=== PATIENT | female | born 1935 | race African-American/Black ===

== ENCOUNTER 2020-07-09 20:44 | Inpatient (IN) | payer OTHER ==
[2020-07-09 22:40] LABS: Urine Blood 2+ (Negative); Urine Glucose Negative (Negative); Urine Protein Trace (Negative)
[2020-07-09] MEDS ORDERED: NA CHLORIDE 0.9% 1,000 ML ONE (23:33)
[2020-07-09] MEDS ORDERED: FAMOTIDINE 20 MG/2 ML VIAL IV ONE (23:34)
[2020-07-09 23:36] LABS: Absolute Lymphocytes (CBC) 1.2 K/uL (0.7-4.9); Basophils % 0.9 % (0-1.3); Hematocrit 37.4 % (36.0-45.0); Lymphocytes % 15.1 % (15.3-44.8); MPV 7.6 fL (7.6-11.3); RBC Red Blood Cell Count 4.56 M/uL (3.86-4.86)
[2020-07-09 23:46] LABS: Protime INR 1.3
--- NOTE | 2020-07-10 00:16 | EDPHYS ---
Physician Documentation [facility] Name: Anurag Marinelli Age: 84 yrs Sex: Female : 1935 Arrival Date: 07/09/2020 Time: 20:53 Bed 27 Private MD: TYRA Physician Jose Rafael Peterson HPI: 07/10 00:00 This 84 yrs old Black Female presents to ER via Ambulatory with complaints of Slurred juanpablo Speech, General Weakness. 00:01 Onset: The symptoms/episode began/occurred 3 day(s) ago. Modifying factors: The juanpablo symptoms are alleviated by nothing, the symptoms are aggravated by movement. Associated signs and symptoms: Pertinent positives: constipation, cramping. Severity of symptoms: At their worst the symptoms were mild, in the emergency department the symptoms are unchanged. The patient's problem is reported as dysphasia, weakness, that is generalized. Onset: The symptoms/episode began/occurred 3 day(s) ago. Duration: The episodes are intermittent. Context: the episode(s) was witnessed, by family, son. The symptoms are alleviated by nothing. The symptoms are aggravated by nothing. The patient presents with pain that is acute, and decreased range of motion. The symptoms are located in the lumbar area, left low back and right low back. Onset: The symptoms/episode began/occurred 3 day(s) ago. The pain does not radiate. Associated signs and symptoms: Pertinent positives: none. Modifying factors: The patient symptoms are alleviated by nothing, the patient symptoms are aggravated by lifting, movement, supine position, walking. weak, pain all over , low back and legs hurt, weight loss, no doctor. Historical: - Allergies: 07/09 21:09 No Known Allergies; ca1 - PMHx: 21:09 High Cholesterol; ca1 - PSHx: 21:09 Tubal ligation; ca1 - Immunization history:: Client reports receiving the 2nd dose of the Covid vaccine, Client reports receiving the 1st dose of the Covid vaccine, Pneumococcal vaccine is up to date, Flu vaccine is up to date. - Social history:: Smoking status: Patient denies any tobacco usage or history of. ROS: 07/10 00:01 Constitutional: Negative for fever, chills, and weight loss, Eyes: Negative for injury, juanpablo pain, redness, and discharge, ENT: Negative for injury, pain, and discharge, Neck: Negative for injury, pain, and swelling, Cardiovascular: Negative for chest pain, palpitations, and edema, Respiratory: Negative for shortness of breath, cough, wheezing, and pleuritic chest pain, Abdomen/GI: Negative for abdominal pain, nausea, vomiting, diarrhea, and constipation, : Negative for injury, bleeding, discharge, and swelling, Skin: Negative for injury, rash, and discoloration, Psych: Negative for depression, anxiety, suicide ideation, homicidal ideation, and hallucinations, Allergy/Immunology: Negative for hives, rash, and allergies, Endocrine: Negative for neck swelling, polydipsia, polyuria, polyphagia, and marked weight changes, Hematologic/Lymphatic: Negative for swollen nodes, abnormal bleeding, and unusual bruising. Back: Positive for decreased range of motion, pain at rest, pain with movement. MS/extremity: Positive for decreased range of motion, pain, tenderness, of the back, buttocks and pelvis. Exam: 00:01 Constitutional: This is a well developed, well nourished patient who is awake, alert, juanpablo and in no acute distress. Head/Face: Normocephalic, atraumatic. Eyes: Pupils equal round and reactive to light, extra-ocular motions intact. Lids and lashes normal. Conjunctiva and sclera are non-icteric and not injected. Cornea within normal limits. Periorbital areas with no swelling, redness, or edema. ENT: Nares patent. No nasal discharge, no septal abnormalities noted. Tympanic membranes are normal and external auditory canals are clear. Oropharynx with no redness, swelling, or masses, exudates, or evidence of obstruction, uvula midline. Mucous membranes moist. Neck: Trachea midline, no thyromegaly or masses palpated, and no cervical lymphadenopathy. Supple, full range of motion without nuchal rigidity, or vertebral point tenderness. No Meningismus. Chest/axilla: Normal chest wall appearance and motion. Nontender with no deformity. No lesions are appreciated. Cardiovascular: Regular rate and rhythm with a normal S1 and S2. No gallops, murmurs, or rubs. Normal PMI, no JVD. No pulse deficits. Respiratory: Lungs have equal breath sounds bilaterally, clear to auscultation and percussion. No rales, rhonchi or wheezes noted. No increased work of breathing, no retractions or nasal flaring. Abdomen/GI: Soft, non-tender, with normal bowel sounds. No distension or tympany. No guarding or rebound. No evidence of tenderness throughout. Female : Normal external genitalia. Skin: Warm, dry with normal turgor. Normal color with no rashes, no lesions, and no evidence of cellulitis. MS/ Extremity: Pulses equal, no cyanosis. Neurovascular intact. Full, normal range of motion. Neuro: Awake and alert, GCS 15, oriented to person, place, time, and situation. Cranial nerves II-XII grossly intact. Motor strength 5/5 in all extremities. Sensory grossly intact. Cerebellar exam normal. Normal gait. Psych: Awake, alert, with orientation to person, place and time. Behavior, mood, and affect are within normal limits. 00:01 Back: pain, that is mild, that is moderate, ROM is painful, normal spinal alignment noted, CVA tenderness, is absent, vertebral tenderness, is not appreciated, muscle spasm, is not present. 00:01 Neuro: Orientation: is normal, appropriate for stated age, no acute changes, Mentation: is normal, appropriate for stated age, no acute changes, Memory: is normal, appropriate for stated age, no acute changes, Cranial nerves: grossly normal, is grossly normal based on the patient's age, no acute changes, Cerebellar function: is grossly normal, is grossly normal based on the patient's age, no acute changes, Motor: moves all fours, Sensation: no acute changes, Gait: is steady, appropriate for age, Babinski testing is normal, seizure activity, is not displayed by the patient. 00:06 Radiologist reports: negative head, old changes [facility] 00:11 ECG was reviewed by the Attending Physician. [facility] Vital Signs: 07/09 21:01 BP 136 / 80; Pulse 80; Resp 16 S; Temp 99.3(O); Pulse Ox 100% on R/A; Weight 47.63 kg ca1 (R); Height 5 ft. 4 in. (162.56 cm) (R); Pain 0/10; 22:56 BP 106 / 81; Pulse 72; Resp 18; Pulse Ox 99% on R/A; ad5 07/10 00:56 BP 150 / 62; Pulse 65; Resp 16 S; Pulse Ox 95% on R/A; ad5 01:30 BP 142 / 72; Pulse 70; Resp 17 S; Pulse Ox 96% on R/A; ad5 07/09 21:01 Body Mass Index 18.02 (47.63 kg, 162.56 cm) ca1 MDM: 07/09 22:32 Patient medically screened. [facility] 07/10 00:07 Differential diagnosis: kidney stone, malignancy, nonspecific abdominal pain, chronic juanpablo back pain, Epidural or Perispinal Abcess Epidural or Perispinal Bleed Fracture Hydronephrosis Neoplasm Osteoarthritis Osteomalacia Osteoporosis ruptured disc, sprain, Ureterolithiasis. Data reviewed: vital signs, nurses notes, lab test result(s), EKG, radiologic studies, CT scan, plain films. Data interpreted: associate engineer: rate is 72 beats/min, rhythm is regular, Pulse oximetry: on room air is 99 %. Test interpretation: by ED physician or midlevel provider: ECG, plain radiologic studies. Counseling: I had a detailed discussion with the patient and/or guardian regarding: the historical points, exam findings, and any diagnostic results supporting the discharge/admit diagnosis, lab results, radiology results, the need for further work-up and treatment in the hospital. 07/09 22:40 Order name: Urine Dipstick-Ancillary; Complete Time: 23:57 EDPA 07/09 23:06 Order name: Basic Metabolic Panel [facility] 07/09 23:06 Order name: CBC with Diff [facility] 07/09 23:06 Order name: LFT's [facility] 07/09 23:06 Order name: Magnesium [facility] 07/09 23:06 Order name: NT PRO-BNP [facility] 07/09 23:06 Order name: PT-INR [facility] 07/09 23:06 Order name: Troponin (emerg Dept Use Only); Complete Time: 00:36 [facility] 07/09 23:06 Order name: Lipase; Complete Time: 00:36 [facility] 07/09 23:06 Order name: Urine Culture [facility] 07/09 23:06 Order name: Basic Metabolic Panel; Complete Time: 00:36 EDPA 07/09 23:06 Order name: CBC with Automated Diff; Complete Time: 23:57 EDMS 07/09 23:06 Order name: Liver (Hepatic) Function; Complete Time: 00:36 EDPA 07/09 23:06 Order name: Magnesium; Complete Time: 00:36 EDPA 07/09 21:20 Order name: CT Head Brain wo Cont [facility] 07/09 21:40 Order name: Stone Protocol EDPA 07/09 23:06 Order name: XRAY Chest (1 view) [facility] 07/09 23:06 Order name: CT Chest, Abdomen, Pelvis - W/Contrast: oral and iv [facility] 07/09 23:06 Order name: NT PRO-BNP; Complete Time: 00:36 EDMS 07/09 23:06 Order name: Protime (+INR); Complete Time: 23:57 EDPA 07/10 00:00 Order name: CT Head Brain w Cont [facility] 07/10 00:16 Order name: SARS-COV-2 RT PCR; Complete Time: 00:36 EDMS 07/09 23:06 Order name: EKG; Complete Time: 23:06 [facility] 07/09 23:06 Order name: Cardiac monitoring; Complete Time: 23:46 [facility] 07/09 23:06 Order name: EKG - Nurse/Tech; Complete Time: 23:46 [facility] 07/09 23:06 Order name: IV Saline Lock; Complete Time: 23:46 [facility] 07/09 23:06 Order name: Labs collected and sent; Complete Time: 23:46 [facility] 07/09 23:06 Order name: O2 Sat Monitoring; Complete Time: 00:27 [facility] 07/10 02:05 Order name: CONS Physician Consult EDPA EC:11 Rate is 71 beats/min. Rhythm is regular. QRS [place] is Normal. [place] interval is normal. QRS juanpablo interval is normal. QT interval is normal. No Q waves. T waves are Normal. No ST changes noted. Clinical impression: NSR w/ Non-specific ST/T Changes and No evidence of ischemia. Interpreted by me. Reviewed by me. Administered Medications: 07/09 23:35 Drug: NS 0.9% 500 ml Route: IV; Rate: bolus; Site: right forearm; ad5 07/10 00:26 Follow up: IV Status: Completed infusion; IV Intake: 500ml ad5 07/09 23:35 Drug: NS 0.9% 1000 ml Route: IV; Rate: 125 ml/hr; Site: right forearm; ad5 07/10 02:42 Follow up: IV Status: Completed infusion; IV Intake: 1000ml ad5 07/09 23:36 Drug: Pepcid (famotidine) 20 mg Route: IVP; Site: right forearm; ad5 07/10 00:25 Follow up: Response: No adverse reaction ad5 00:55 Drug: Rocephin (cefTRIAXone) 1 grams Route: IV; Rate: per protocol; Site: right forearm;ad5 01:43 Follow up: IV Status: Completed infusion ad5 01:04 Drug: Aspirin 162 mg Route: PO; ad5 01:44 Follow up: Response: No adverse reaction ad5 01:04 Drug: Lopressor (metoprolol TARTRATE)) 25 mg Route: PO; ad5 01:43 Follow up: Response: No adverse reaction ad5 01:04 Drug: PlaVIX (clopidogrel) 75 mg Route: PO; ad5 01:43 Follow up: Response: No adverse reaction ad5 Disposition: 07/10/20 00:15 Hospitalization ordered by Mary Fall for Inpatient Admission. 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 - Bed requested for Telemetry/MedSurg (Inpatient). - Status is Inpatient Admission. ad5 - Condition is Stable. - Problem is new. - Symptoms have improved. Signatures: Dispatcher [employer] EDPA Jose Rafael Peterson MD MD cha Lasagna, Tonya RN RN tl1 Sapphire Umaña RN RN ca1 Homero Hogan ad5 Corrections: (The following items were deleted from the chart) 07/09 21:46 21:41 Stone Protocol+CT.RAD.BRZ ordered. EDPA EDPA 23:35 23:13 CORONAVIRUS+MR.LAB.BRZ ordered. [facility] EDPA 07/10 00:38 00:15 Hospitalization Ordered by Mary Fall MD for Observation. Preliminary juanpablo diagnosis is Weakness; Neoplasm related pain (acute) (chronic) - spine; Urinary tract infection, site not specified. Bed requested for Telemetry/MedSurg (observation). Status is Observation. Condition is Stable. Problem is new. Symptoms have improved. juanpablo 00:39 00:38 07/10/2020 00:15 Hospitalization Ordered by Mary Fall MD for Inpatient juanpablo Admission. Preliminary diagnosis is Weakness; Neoplasm related pain (acute) (chronic) - spine; Urinary tract infection, site not specified; Non-ST elevation (NSTEMI) myocardial infarction. Bed requested for Telemetry/MedSurg (Inpatient). Status is Inpatient Admission. Condition is Stable. Problem is new. Symptoms have improved. juanpablo 02:21 00:39 07/10/2020 00:15 Hospitalization Ordered by Mary Fall MD for Inpatient tl1 Admission. 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 Bed requested for Telemetry/MedSurg (Inpatient). Status is Inpatient Admission. Condition is Stable. Problem is new. Symptoms have improved. juanpablo 03:33 02:21 07/10/2020 00:15 Hospitalization Ordered by Mary Fall MD for Inpatient ad5 Admission. 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 Bed requested for Telemetry/MedSurg (Inpatient). Status is Inpatient Admission. Condition is Stable. Problem is new. Symptoms have improved. tl1
--- NOTE | 2020-07-10 00:16 | ER ---
Nurse's Notes [facility] Name: Anurag Marinelli Age: 84 yrs Sex: Female : 1935 Arrival Date: 07/09/2020 Time: 20:53 Bed 27 Private MD: Diagnosis: Weakness;Neoplasm related pain (acute) (chronic)-spine, liver and lung;Urinary tract infection, site not specified;Non-ST elevation (NSTEMI) myocardial infarction Presentation: 07/09 21:01 Chief complaint: Patient states: I just been been feeling weak on my both legs, also ca1 been having low back pain, across. Patient's son or daughter states: SON: I feel like her speech has slowed down, he is forgetful and confused. Noticed this a week and half ago and has progressed. Took her to [place], did a Covid swab test and it was negative. She was also diagnosed with UTI at [facility] and has completed ABX. A\T\Ox2, VAN negative. No slurring noted. NO facial droop. Denies HX of stroke. Coronavirus screen: Client denies travel out of the [place] in the last 14 days. The client reports previous COVID testing was negative. Date of collection: June 2020. Ebola Screen: Patient negative for fever greater than or equal to 101.5 degrees Fahrenheit, and additional compatible Ebola Virus Disease symptoms Patient denies exposure to infectious person. Patient denies travel to an Ebola-affected area in the 21 days before illness onset. No symptoms or risks identified at this time. Initial Sepsis Screen: Does the patient meet any 2 criteria? No. Patient's initial sepsis screen is negative. Does the patient have a suspected source of infection? No. Patient's initial sepsis screen is negative. Risk Assessment: Do you want to hurt yourself or someone else? Patient reports no desire to harm self or others. Onset of symptoms was July 09, 2020. 21:01 Method Of Arrival: Ambulatory ca1 21:01 Acuity: BRIANA 3 ca1 Historical: - Allergies: 21:09 No Known Allergies; ca1 - PMHx: 21:09 High Cholesterol; ca1 - PSHx: 21:09 Tubal ligation; ca1 - Immunization history:: Client reports receiving the 2nd dose of the Covid vaccine, Client reports receiving the 1st dose of the Covid vaccine, Pneumococcal vaccine is up to date, Flu vaccine is up to date. - Social history:: Smoking status: Patient denies any tobacco usage or history of. Screenin:56 Abuse screen: Denies threats or abuse. Denies injuries from another. Nutritional ad5 screening: pt reports decreased appetite and poor po intake at home. Tuberculosis screening: No symptoms or risk factors identified. Fall Risk No fall in past 12 months (0 pts). Secondary diagnosis (15 points) IV access (20 points). Ambulatory Aid- None/Bed Rest/Nurse Assist (0 pts). Gait- Weak (10 pts.). Mental Status- Oriented to own ability (0 pts). Total Donaldson Fall Scale indicates High Risk Score (45 or more points). Fall prevention measures have been instituted. Side Rails Up X 2 Frequent Obs/Assessments Occuring Family Present and informed to notify staff if the need to leave the bedside. Assessment: 22:53 General: Appears in no apparent distress. malnourished, Behavior is calm, cooperative, ad5 appropriate for age. Pain: Complains of pain in lumbar area. Neuro: Level of Consciousness is awake, alert, obeys commands, Oriented to person, place, situation, Painter Mirror are weak bilaterally Moves all extremities. Weakness Gait is steady, Speech is normal, Facial symmetry appears normal, Pupils are PERRLA, Intact. Cardiovascular: Reports chest pain, fatigue, Pt reports lower chest wall pain with deep inspiration over past week, denies CP at this time. Respiratory: No deficits noted. Airway is patent Trachea midline Respiratory effort is even, unlabored, Respiratory pattern is regular, symmetrical. GI: No deficits noted. Abdomen is flat, Bowel sounds present X 4 quads. Abd is soft and non tender Reports decreased appetite. : No deficits noted. Reports recently finished po abx for dx UTI this past week. EENT: No deficits noted. Derm: No deficits noted. Skin is intact, Skin is dry, Skin is normal, Skin temperature is warm. Musculoskeletal: No deficits noted. 07/10 00:24 Reassessment: Patient appears in no apparent distress at this time. No changes from ad5 previously documented assessment. Patient and/or family updated on plan of care and expected duration. Pain level reassessed. Patient is alert, oriented x 3, equal unlabored respirations, skin warm/dry/pink. 01:41 Reassessment: No changes from previously documented assessment. Patient and/or family ad5 updated on plan of care and expected duration. Pain level reassessed. Patient is alert, oriented x 3, equal unlabored respirations, skin warm/dry/pink. Pt up to restroom, ambulates independently with steady gait. Repositioned back into stretcher for comfort. Family remains at bedside. Pt reattached to CM with BP/pulse ox. Denies new or worsening c/o. Resp even/unlabored. VS remain stable. NAD noted, will continue to monitor. Vital Signs: 07/09 21:01 BP 136 / 80; Pulse 80; Resp 16 S; Temp 99.3(O); Pulse Ox 100% on R/A; Weight 47.63 kg ca1 (R); Height 5 ft. 4 in. (162.56 cm) (R); Pain 0/10; 22:56 BP 106 / 81; Pulse 72; Resp 18; Pulse Ox 99% on R/A; ad5 07/10 00:56 BP 150 / 62; Pulse 65; Resp 16 S; Pulse Ox 95% on R/A; ad5 01:30 BP 142 / 72; Pulse 70; Resp 17 S; Pulse Ox 96% on R/A; ad5 07/09 21:01 Body Mass Index 18.02 (47.63 kg, 162.56 cm) ca1 ED Course: 07/09 20:53 Patient arrived in ED. am4 21:08 Triage completed. ca1 21:09 Arm band placed on right wrist. ca1 21:40 Jose Rafael Peterson MD is Attending Physician. juanpablo 21:43 CT Head Brain wo Cont In Process Unspecified. EDMS 21:48 Stone Protocol In Process Unspecified. EDMS 22:23 Homero Hogan is Primary Nurse. ad5 22:57 Patient has correct armband on for positive identification. Placed in gown. Bed in low ad5 position. Call light in reach. Side rails up X2. state patrol officer on. Pulse ox on. NIBP on. Door closed. Noise minimized. Warm blanket given. 23:41 XRAY Chest (1 view) In Process Unspecified. EDMS 23:46 No provider procedures requiring assistance completed. Inserted saline lock: 22 gauge ad5 in right forearm, using aseptic technique. 23:47 Initial lab(s) drawn, by me, sent to lab. ad5 05/21 00:12 Mary Fall MD is Hospitalizing Provider. juanpablo 00:27 Basic Metabolic Panel Sent. ad5 00:27 CBC with Diff Sent. ad5 00:27 LFT's Sent. ad5 00:27 Magnesium Sent. ad5 01:32 CT Head Brain w Cont Sent. ad5 01:32 CT Chest, Abdomen, Pelvis - W/Contrast: oral and iv Sent. ad5 01:38 CT Chest, Abdomen, Pelvis - W/Contrast: oral and iv In Process Unspecified. EDMS 01:38 CT Head Brain w Cont In Process Unspecified. EDMS 03:33 Patient admitted, IV remains in place. ad5 Administered Medications: 07/09 23:35 Drug: NS 0.9% 500 ml Route: IV; Rate: bolus; Site: right forearm; ad5 07/10 00:26 Follow up: IV Status: Completed infusion; IV Intake: 500ml ad5 07/09 23:35 Drug: NS 0.9% 1000 ml Route: IV; Rate: 125 ml/hr; Site: right forearm; ad5 07/10 02:42 Follow up: IV Status: Completed infusion; IV Intake: 1000ml ad5 07/09 23:36 Drug: Pepcid (famotidine) 20 mg Route: IVP; Site: right forearm; ad5 07/10 00:25 Follow up: Response: No adverse reaction ad5 00:55 Drug: Rocephin (cefTRIAXone) 1 grams Route: IV; Rate: per protocol; Site: right forearm;ad5 01:43 Follow up: IV Status: Completed infusion ad5 01:04 Drug: Aspirin 162 mg Route: PO; ad5 01:44 Follow up: Response: No adverse reaction ad5 01:04 Drug: Lopressor (metoprolol TARTRATE)) 25 mg Route: PO; ad5 01:43 Follow up: Response: No adverse reaction ad5 01:04 Drug: PlaVIX (clopidogrel) 75 mg Route: PO; ad5 01:43 Follow up: Response: No adverse reaction ad5 Intake: 00:26 IV: 500ml; Total: 500ml. ad5 02:42 IV: 1000ml; Total: 1500ml. ad5 Outcome: 00:15 Decision to Hospitalize by Provider. juanpablo 03:32 Admitted to Med/surg accompanied by nurse, via stretcher. ad5 03:32 Condition: stable 03:32 Instructed on the need for admit, Demonstrated understanding of instructions. 03:33 Patient left the ED. ad5 Signatures: Dispatcher [employer] EDMS Nicholas, Jose Rafael, MD MD juanpablo Acob, Sapphire, CEE RN ca1 Andie Butts Andrea ad5
[2020-07-10 00:24] LABS: Albumin 3.4 g/dL (3.4-5.0); Bilirubin Direct 0.2 mg/dL (0-0.2); Bilirubin Total 0.5 mg/dL (0.2-1.0); Magnesium 2.6 mg/dL (1.8-2.4); Potassium 4.2 mmol/L (3.5-5.1); Protein, Total 7.9 g/dL (6.4-8.2)
[2020-07-10 00:28] LABS: Troponin (Emerg Dept Use Only) 0.81 ng/mL (0.0-0.045)
[2020-07-10] MEDS ORDERED: CEFTRIAXONE 1000 MG/VIAL ONE (00:56)
[2020-07-10] MEDS ORDERED: NA CHLORIDE 0.9% 50 ML ONE (00:56)
[2020-07-10] MEDS ORDERED: METOPROLOL TAR 25 MG TAB ONE (01:17)
[2020-07-10] MEDS ORDERED: ASPIRIN 81 MG CHEWABLE TABLET ONE (01:17)
[2020-07-10] MEDS ORDERED: CLOPIDOGREL 75 MG TABLET ONE ×2 (01:18→01:22)
[2020-07-10] MEDS ORDERED: ONDANSETRON 4 MG/2 ML VIAL IV PRN (03:04)
[2020-07-10] MEDS ORDERED: MORPHINE 2 MG/ML SYR IV PRN (03:04)
[2020-07-10] MEDS ORDERED: ACETAMINOPHEN 500 MG TAB PO PRN (03:04)
[2020-07-10 04:00] VITALS: BMI 24.0
--- NOTE | 2020-07-10 04:28 | P.HP ---
Certification for Inpatient Patient admitted to: Inpatient With expected LOS: >2 Midnights Patient will require the following post-hospital care: None Practitioner: I am a practitioner with admitting privileges, knowledge of patient current condition, hospital course, and medical plan of care. Services: Services provided to patient in accordance with Admission requirements found in Title 42 Section 412.3 of the Code of Federal Regulations Patient History Date of Service: 07/10/20 Reason for admission: anorexia, weight loss History of Present Illness: Ms. Marinelli is an 84 yo F with HLD who presents with 3 weeks of anorexia and weight loss of about 10lbs. She also reports intermittent back and abdominal pain. She has been having increasing weakness, lightheadedness and dizziness. Denies nausea and vomiting. AST 107, alk phos 495. Trop 0.81. 2+ blood, leukocyte esterase, protein. CT scan shows metastatic disease including innumerable tiny pulmonary nodules, numerous ill defined hepatic hypodensities and patchy regions of osseous sclerosis as well as hypodense ovioid structure in left mid abdomen. Allergies No Known Allergies Allergy (Unverified 07/10/20 01:50) - Past Medical/Surgical History Diabetic: No -: HLD Past Surgical History: Reviewed- Non-Contributory - Family History Family History: Reviewed- Non-Contributory - Social History Smoking Status: Never smoker Alcohol use: No CD- Drugs: No Caffeine use: Yes Place of Residence: Home Review of Systems General: Weakness, As per HPI Eyes: Unremarkable ENT: Unremarkable Respiratory: Unremarkable Cardiovascular: Unremarkable Gastrointestinal: Abdominal Pain, As per HPI Genitourinary: Frequency, As per HPI Musculoskeletal: Back Pain, As per HPI Integumentary: Unremarkable Neurological: Weakness, As per HPI Lymphatics: Unremarkable Physical Examination - Vital Signs Temperature: 99.3 F Blood Pressure: 142/72 Pulse: 70 Respirations: 17 - Physical Exam General: Alert, In no apparent distress, Oriented x3, Cooperative, Cachectic HEENT: Atraumatic, Normocephalic, PERRLA, Mucous membr. moist/pink, EOMI, Sclerae nonicteric Neck: Supple, 2+ carotid pulse no bruit, JVD not distended, No Thyromegaly, No LAD Respiratory: Clear to auscultation bilaterally, Normal air movement Cardiovascular: No edema, Normal pulses, Regular rate/rhythm, Normal S1 S2, No gallops, No rubs, No murmurs Capillary refill: <2 Seconds Gastrointestinal: Normal bowel sounds, Soft and benign, Non-distended, No ascites, No tenderness, No masses, No rebound, No guarding Musculoskeletal: No clubbing, No swelling, No contractures, No erythema, No tenderness, No warmth Integumentary: No rashes, No breakdown, No significant lesion, No tenderness/swelling, No erythema, No warmth, No cyanosis Neurological: Normal gait, Normal speech, Normal strength at 5/5 x4 extr, Normal tone, Sensation intact, Cranial nerves 3-12 intact, Normal affect Lymphatics: No axilla or inguinal lymphadenopathy - Studies Laboratory Data (last 24 hrs) 07/09/20 20:25: PT 15.0 H, INR 1.30 07/09/20 20:25: WBC 8.20, Hgb 12.1, Hct 37.4, Plt Count 229 07/09/20 20:25: Sodium 138, Potassium 4.2, BUN 22 H, Creatinine 0.99, Glucose 99, Magnesium 2.6 H, Total Bilirubin 0.5, AST 107 H, ALT 58, Alkaline Phosphatase 495 H, Lipase 343 Assessment and Plan - Problems (Diagnosis) (1) Anorexia Current Visit: Yes Status: Acute (2) Metastatic disease Current Visit: Yes Status: Acute Qualifiers: Area of secondary neoplastic involvement: unspecified site Qualified Code(s): C79.9 - Secondary malignant neoplasm of unspecified site (3) Elevated troponin Current Visit: Yes Status: Acute (4) UTI (urinary tract infection) Current Visit: Yes Status: Acute Qualifiers: Urinary tract infection type: site unspecified Hematuria presence: with hematuria Qualified Code(s): N39.0 - Urinary tract infection, site not specified; R31.9 - Hematuria, unspecified (5) HLD (hyperlipidemia) Current Visit: Yes Status: Chronic Qualifiers: Hyperlipidemia type: unspecified Qualified Code(s): E78.5 - Hyperlipidemia, unspecified - Plan oncology consulted will continue IV abx and IV fluids dietitian consulted for dietary supplements and appetite stimulants pain management as needed will trend troponins lipid panel pending Discharge Plan: Home Plan to discharge in: 48 Hours - Advance Directives Does patient have a Living Will: No Does patient have a Durable POA for Healthcare: No - Code Status/Comfort Care Code Status Assessed: Yes (full code) Critical Care: No Time Spent Managing Pts Care (In Minutes): 70
[2020-07-10] MEDS: NA CHLORIDE 0.9% 1,000 ML IV SCH ×2 (04:29→21:03)
[2020-07-10 06:38] LABS: Absolute Lymphocytes (CBC) 0.9 K/uL (0.7-4.9); Basophils % 0.7 % (0-1.3); Hematocrit 36.6 % (36.0-45.0); Lymphocytes % 12.1 % (15.3-44.8); MPV 8.1 fL (7.6-11.3); RBC Red Blood Cell Count 4.47 M/uL (3.86-4.86)
[2020-07-10 07:41] LABS: Bilirubin Total 0.4 mg/dL (0.2-1.0); Magnesium 2.4 mg/dL (1.8-2.4); Phosphorus 2.7 mg/dL (2.5-4.9); Potassium 4.4 mmol/L (3.5-5.1); Protein, Total 7.3 g/dL (6.4-8.2); Thyroid Stimulating Hormone 2.19 uIU/mL (0.360-3.740)
--- NOTE | 2020-07-10 08:38 | RAD REPORT ---
EXAM DESCRIPTION: RAD - Chest Single View - 07/09/2020 11:41 pm CLINICAL HISTORY: COUGH Chest pain. COMPARISON: No comparisons FINDINGS: Portable technique limits examination quality. Innumerable nodules are present throughout both lungs compatible with diffuse lung metastasis. The he art is normal in size.
[2020-07-10] MEDS: ENOXAPARIN 30 MG/0.3 ML SQ SCH (08:44)
--- NOTE | 2020-07-10 09:23 | RAD REPORT ---
EXAM DESCRIPTION: CT CHEST WITH IV CONTRAST CLINICAL HISTORY: ABDOMINAL DISTENTION TECHNIQUE: Contiguous axial images obtained through the chest following the uneventful administratio n of IV contrast. Coronal and sagittal reformatted images provided. This exam was performed according to our departmental dose-optimization program, which includes autom ated exposure control, adjustment of the mA and/or kV according to patient size and/or use of iterati ve reconstruction technique. COMPARISON: No prior exams provided for comparison. FINDINGS: Lungs: Innumerable pulmonary nodules throughout the lungs bilaterally. The majority of the nodules are subcentimeter in size. Larger nodules present within the right lower lobe with a dominan t mass measuring 2.6 cm (series 401 image 34). Right lower lobe calcified granuloma. Right lower lobe airways are attenuated centrally. Pleura: No effusion. No pneumothorax. Heart and pericardium: The heart is normal in size. Coronary artery calcification. No pericardial eff usion. Mediastinum and niki: Enlarged mediastinal and right hilar lymph nodes measuring up to 13 mm in short axis. Calcified mediastinal and right hilar lymph nodes. Lower neck and chest wall: Unremarkable Vessels: Mild atherosclerotic disease. No thoracic aortic aneurysm. Bones: Scattered subtle sclerotic osseous lesions within the ribs bilaterally and within the sternum. Destructive lytic lesion involving the left posterior lateral 6th rib. EXAM DESCRIPTION: CT ABDOMEN PELVIS WITH IV CONTRAST CLINICAL HISTORY: ABDOMINAL DISTENTION TECHNIQUE: Contiguous axial images obtained through the abdomen and pelvis following the uneventful administration of IV contrast. Coronal and sagittal reformatted images were provided. This exam was performed according to our departmental dose-optimization program, which includes autom ated exposure control, adjustment of the mA and/or kV according to patient size and/or use of iterati ve reconstruction technique. COMPARISON: None available for comparison. FINDINGS: Liver: Multiple heterogeneous hepatic lesions. An index right posterior hepatic lesion sai sures 3.5 x 2.8 x 3.7 cm (series 601 image 18 and series 402 image 50). Gallbladder and biliary system: Unremarkable Pancreas: Mild pancreatic ductal dilation. No focal parenchymal lesion. Spleen: Splenic parenchymal calcifications compatible with remote granulomatous organism exposure. Adrenals: Heterogeneous enlargement of the left adrenal gland measuring approximately 2.5 x 1.6 x 2.6 cm. Kidneys: Normal renal cortical enhancement. No calculi. Mild fullness of the renal collecting systems bilaterally.. Bowel: Moderate stool within the mid to distal large bowel. No obstruction. No appreciable mucosal th ickening. Appendix: Normal caliber appendix. No findings to suggest acute appendicitis. Urinary bladder: The urinary bladder is distended. Reproductive: Unremarkable as visualized Lymph nodes: Nonspecific fluid density structure abutting the left psoas muscle at the lower lumbar l evel measuring approximately 2.8 x 1.1 x 1.6 cm (series 602 image 47 and series 601 image 43).. Peritoneum: No focal fluid collection. No free air. Vessels: Mild atherosclerotic disease. No abdominal aortic aneurysm. Abdominal wall: Unremarkable Bones: Multilevel spondylosis. Moderate to severe canal stenosis at L3-L4. Scattered subtle sclerotic lesions within the osseous structures, index lesions within the sacrum, left iliac bone and right le sser trochanter. 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 IMPRESSION: CT CHEST: 1. Innumerable pulmonary nodules bilaterally most compatible with metastatic disease. Larger nodule s present within the right lower lobe with a dominant mass measuring 2.6 cm. Right lower lobe airways are attenuated centrally. This may be the site of primary malignancy. 2. Findings suspicious for osseous metastases, predominantly blastic. There is a destructive lytic lesion involving the left 6th rib. 3. Other findings as above. CT ABDOMEN PELVIS: 1. Multiple heterogeneous hepatic lesions suspicious for metastatic disease. 2. Heterogeneous enlargement of the left adrenal gland measuring approximately 2.5 x 1.6 x 2.6 cm. This may be related to metastatic disease. 3. Findings suspicious for osseous metastases. 4. Nonspecific fluid density structure abutting the left psoas muscle at the lower lumbar level sai suring approximately 2.8 x 1.1 x 1.6 cm. The possibility of a necrotic lymph node cannot be excluded. 5. Mild fullness of the renal collecting systems bilaterally. No renal, ureteral or bladder calculi . This appearance is nonspecific and could represent physiologic fullness. Please correlate clinicall y for urinary tract infection. 6. Other findings as above. Electronically signed by: Torres Gooden MD 07/10/2020 2:20 AM CDT Due to temporary technical issues with the PACS/Fluency reporting system, reports are being signed by the in house radiologist without review as a courtesy to ensure prompt reporting. The interpreting r adiologist is fully responsible for the content of the report.
--- NOTE | 2020-07-10 09:27 | RAD REPORT ---
EXAM DESCRIPTION: CT Head With Intravenous Contrast CLINICAL HISTORY: The patient is 84 years old and is Female; SLURRED SPEECH TECHNIQUE: Axial computed tomography images of the head/brain with intravenous contrast. Sagittal and coronal reformatted images were created and reviewed. This CT exam was performed using one or m ore of the following dose reduction techniques: automated exposure control, adjustment of the mA an d/or kV according to patient size, and/or use of iterative reconstruction technique. COMPARISON: CT head 07/09/2020. FINDINGS: Brain: Mild nonspecific white matter changes likely related to chronic microvascular isc hemic disease. Mild cerebral atrophy. No hemorrhage. Ventricles: Mild ventricular prominence. Bones/joints: Unremarkable. No acute fracture. Soft tissues: Unremarkable. Sinuses: Unremarkable as visualized. Mastoid air cells: Unremarkable as visualized. No mastoid effusion. IMPRESSION: No acute intracranial abnormality. Electronically signed by: Ruben Johnson MD 07/10/2020 2:18 AM CDT Due to temporary technical issues with the PACS/Fluency reporting system, reports are being signed by the in house radiologist without review as a courtesy to ensure prompt reporting. The interpreting r adiologist is fully responsible for the content of the report.
--- NOTE | 2020-07-10 09:34 | RAD REPORT ---
EXAM DESCRIPTION: Stone Protocol RadLex: CT ABDOMEN PELVIS WITH IV CONTRAST CLINICAL HISTORY: FLANK PAIN. COMPARISON: None. TECHNIQUE: CT of the abdomen and pelvis was performed following intravenous administration of iodina dilshad contrast. Oral contrast was not administered. Axial, coronal, and sagittal soft tissue window rec onstructions were created and sent to PACS. This exam was performed according to our departmental dose-optimization program, which includes autom ated exposure control, adjustment of the mA and/or kV according to patient size and/or use of iterati ve reconstruction technique. FINDINGS: Thoracic: Innumerable tiny pulmonary nodules in the visualized lung bases. Hepatobiliary: Numerous ill-defined hepatic hypodensities. The hepatic and portal veins are patent. T he gallbladder is unremarkable. No biliary ductal dilatation. Pancreas: Unremarkable. Spleen: Unremarkable. Gastrointestinal: No evidence of bowel obstruction or perienteric inflammation. The appendix is mike l. Moderate amount of fecal material in the colon and rectum. Adrenals: No abnormality identified in either adrenal gland. Renal: No concerning parenchymal abnormality in either kidney. No hydronephrosis or urolithiasis. Bladder/Reproductive: Unremarkable appearance of the urinary bladder by CT technique. Vascular/Lymphatics: Hypodense ovoid structure of uncertain etiology in the left mid abdomen (axial i mage 72) anterior to the psoas muscle, measuring 1 x 1.9 cm, with the differential including an enlar ged lymph node. No other foci of lymphadenopathy identified. Moderate calcific atherosclerosis. Abdom inal aorta is normal in caliber. Musculoskeletal: Patchy regions of sclerosis in the lumbar spine and sacrum. Moderate bilateral hip o steoarthrosis. Fluid / peritoneum: No significant free fluid. No free intraperitoneal air identified. IMPRESSION 1. Findings concerning for metastatic disease, including innumerable tiny pulmonary nod ules, numerous ill-defined hepatic hypodensities, and patchy regions of osseous sclerosis. Recommend investigation for the primary malignancy. 2. Hypodense ovoid structure in the left mid abdomen of uncertain etiology, with an enlarged lymph node in the differential. 3. No hydronephrosis or urolithiasis identified. Electronically signed by: Danielle Arellano MD 07/09/2020 10:16 PM CDT Due to temporary technical issues with the PACS/Fluency reporting system, reports are being signed by the in house radiologist without review as a courtesy to ensure prompt reporting. The interpreting r adiologist is fully responsible for the content of the report.
--- NOTE | 2020-07-10 09:36 | RAD REPORT ---
EXAM DESCRIPTION: Head Brain Wo Cont. RadLex: CT HEAD WITHOUT IV CONTRAST CLINICAL HISTORY: CONFUSED. TECHNIQUE: Axial, coronal, and sagittal images through the brain were performed in the absence of intravenous contrast. This exam was performed according to our departmental dose-optimization program which includes use of Automated Exposure Control, adjustment of the mA and/or kV according to patient size and/or use of iterative reconstruction technique. COMPARISON: None. FINDINGS: There is diffuse age-appropriate atrophy throughout the brain parenchyma. Mild periventricular white matter changes are present, and there is mild ex vacuo dilatation of the ventricular system. There is no intra-axial or extra-axial bleed. There is no mass or mass effect. The visualized paranasal sinuses and mastoid air cells are patent. No fracture is identified. IMPRESSION: 1. No acute intracranial abnormality identified. 2. Chronic age-related and microvascular ischemic changes. Electronically signed by: Danielle Arellano MD 07/09/2020 9:52 PM CDT Due to temporary technical issues with the PACS/Fluency reporting system, reports are being signed by the in house radiologist without review as a courtesy to ensure prompt reporting. The interpreting radiologist is fully responsible for the content of the report. DONAVAN
--- NOTE | 2020-07-10 16:00 | P.PN ---
Date of Service: 07/10/20 Patient seen and examined. She denies any abdominal pain or shortness of breath. CT chest, abdomen and pelvis results reviewed with pulmonary-Dr. Jo. Patient has diffuse metastatis which connotes poor prognosis and recommended hospice. Case discussed with Dr. Hadley. She recommended tissue diagnosis. Options include CT-guided biopsy of lung nodule or liver Troponin trended flat Obtain an echocardiogram. Continue antibiotics and follow urine culture.
[2020-07-10] MEDS ORDERED: CEFTRIAXONE 1 GM/NS 50 ML 1 GM/50 ML BAG IV SCH (21:00)
[2020-07-11] MEDS ORDERED: CEFTRIAXONE/SWI 1gm 1 GM/10 ML SYR IV SCH
[2020-07-11] MEDS: NA CHLORIDE 0.9% 1,000 ML IV SCH (06:19)
[2020-07-11 06:35] LABS: Basophils % 0.9 % (0-1.3); Hematocrit 33.2 % (36.0-45.0); Lymphocytes % 13.7 % (15.3-44.8); MPV 7.7 fL (7.6-11.3); RBC Red Blood Cell Count 4.07 M/uL (3.86-4.86)
[2020-07-11 07:04] LABS: ALT/SGPT 42 U/L (12-78); AST/SGOT 88 U/L (15-37); Albumin 2.7 g/dL (3.4-5.0); Alkaline Phosphatase 372 U/L (45-117); BUN Blood Urea Nitrogen 11 mg/dL (7-18); Bicarbonate 23 mmol/L (21-32); Bilirubin Total 0.4 mg/dL (0.2-1.0); Glucose Level 88 mg/dL (74-106); Magnesium 2.2 mg/dL (1.8-2.4); Phosphorus 2.6 mg/dL (2.5-4.9); Potassium 4.1 mmol/L (3.5-5.1); Protein, Total 6.8 g/dL (6.4-8.2); Sodium Level 142 mmol/L (136-145)
[2020-07-11] MEDS: ENOXAPARIN 30 MG/0.3 ML SQ SCH (09:00)
[2020-07-11 10:00] VITALS: O2SAT 95
--- NOTE | 2020-07-11 12:10 | P.DS ---
Admission Date: 07/10/20 Discharge Date: 07/11/20 Disposition: ROUTINE DISCHARGE Discharge Condition: FAIR Reason for Admission: anorexia, weight loss - Problems (1) Elevated troponin Current Visit: Yes Status: Acute (2) Metastatic disease Current Visit: Yes Status: Acute Qualifiers: Area of secondary neoplastic involvement: unspecified site Qualified Code(s): C79.9 - Secondary malignant neoplasm of unspecified site (3) UTI (urinary tract infection) Current Visit: Yes Status: Acute Qualifiers: Urinary tract infection type: site unspecified Hematuria presence: with hematuria Qualified Code(s): N39.0 - Urinary tract infection, site not specified; R31.9 - Hematuria, unspecified (4) HLD (hyperlipidemia) Current Visit: Yes Status: Chronic Qualifiers: Hyperlipidemia type: unspecified Qualified Code(s): E78.5 - Hyperlipidemia, unspecified Brief History of Present Illness: 84-year-old woman with a history of hyperlipidemia presented to the emergency department with a complaint of anorexia and weight loss. She also reported intermittent back pain and abdominal pain, and increasing weakness. Her liver enzymes were elevated, UA mild evidence of UTI. CT scan of the chest abdomen and pelvis reported metastatic disease in the lungs and liver, bone, fluid density lesion in the lower abdomen. Patient hospitalized for further manageme nt. Hospital Course: Patient admitted to the medical floor and given a dose of IV Rocephin for UTI. Urine culture yielded no growth. He was also given IV fluids and nutritional supplements. Oncologist-Dr. Hadley who recommended tissue biopsy-could be CT- guided liver biopsy, biopsy of intra-abdominal lymph node. I had a discussion with the patient, her son and daughter about options to obtain tissue biopsy. They requested patient to be discharged so they can send her to a tertiary institution to continue evaluation. Patient vitals are stable, she is clinically stable for discharge. Vital Signs/Physical Exam: Temp Pulse Resp BP Pulse Ox 97.8 F 69 18 146/63 H 98 07/11/20 08:00 07/11/20 08:00 07/11/20 08:00 07/11/20 08:00 07/11/20 08:00 General: Alert, In no apparent distress, Oriented x3 HEENT: Mucous membr. moist/pink Neck: JVD not distended Respiratory: Clear to auscultation bilaterally, Normal air movement Cardiovascular: No edema, Regular rate/rhythm, Normal S1 S2 Gastrointestinal: Normal bowel sounds, Soft and benign, Non-distended Musculoskeletal: No swelling, No tenderness Integumentary: No rashes Neurological: Normal strength at 5/5 x4 extr Laboratory Data at Discharge: WBC 7.30 K/uL (4.3-10.9) 07/11/20 06:08 Hgb 11.0 g/dL (12.0-15.0) L 07/11/20 06:08 Hct 33.2 % (36.0-45.0) L 07/11/20 06:08 Plt Count 239 K/uL (152-406) 07/11/20 06:08 PT 15.0 SECONDS (9.5-12.5) H 07/09/20 20:25 INR 1.30 07/09/20 20:25 Sodium 142 mmol/L (136-145) 07/11/20 06:08 Potassium 4.1 mmol/L (3.5-5.1) 07/11/20 06:08 BUN 11 mg/dL (7-18) 07/11/20 06:08 Creatinine 0.72 mg/dL (0.55-1.3) 07/11/20 06:08 Glucose 88 mg/dL (74-106) 07/11/20 06:08 Phosphorus 2.6 mg/dL (2.5-4.9) 07/11/20 06:08 Magnesium 2.2 mg/dL (1.8-2.4) 07/11/20 06:08 Total Bilirubin 0.4 mg/dL (0.2-1.0) 07/11/20 06:08 AST 88 U/L (15-37) H 07/11/20 06:08 ALT 42 U/L (12-78) 07/11/20 06:08 Alkaline Phosphatase 372 U/L (45-117) H 07/11/20 06:08 Troponin I 0.68 ng/mL (0.0-0.045) H* 07/10/20 15:20 Triglycerides 76 mg/dL (<150) 07/10/20 06:12 Cholesterol 150 mg/dL (<200) 07/10/20 06:12 HDL Cholesterol 54 mg/dL (40-60) 07/10/20 06:12 Cholesterol/HDL Ratio 2.78 07/10/20 06:12 Lipase 343 U/L (73-393) 07/09/20 20:25 Home Medications: Amlodipine [Norvasc*] 10 mg PO DAILY 07/10/20 Aspirin [Aspirin EC 81 MG] 81 mg DAILY 07/10/20 Atorvastatin Calcium [Lipitor] 40 mg BEDTIME 07/10/20 Benazepril HCl [Lotensin] 40 mg DAILY 07/10/20 Carvedilol [Coreg] 3.125 mg BEDTIME 07/10/20 Ensure Enlive 237 ml PO BID #60 can 07/11/20 New Medications: Ensure Enlive 237 ml PO BID #60 can Diet: AHA Activity: Ad radha Followup: Brenda Messer MD [ACTIVE - CAN ADMIT] - 1-2 Weeks Unknown,U [Primary Care Provider] - 1 Week Time spent managing pt's care (in minutes): 33
[2020-07-11 12:14] VITALS: BP 125/69; TEMP 98.6
[2020-07-11] MEDS ORDERED: ENSURE ENLIVE 237 ML CAN PO SCH (21:00)
== END 2020-07-11 14:06 | disposition home or self-care (01) | DRG 181 ==
LOC: EDSEX 20:44 → ER 20:44 → ERHOLD 07-10 02:03 → 2ND 07-10 02:34
PROVIDERS: ADMIT Internal Medicine; ATTEND Internal Medicine
DX: C78.00 Secondary malignant neoplasm of unspecified lung (principal); N39.0 Urinary tract infection, site not specified; R64 Cachexia; C78.7 Secondary malignant neoplasm of liver and intrahepatic bile duct; C79.51 Secondary malignant neoplasm of bone; E78.5 Hyperlipidemia, unspecified; R63.0 Anorexia; C80.1 Malignant (primary) neoplasm, unspecified; R31.9 Hematuria, unspecified; Z68.23 Body mass index [BMI] 23.0-23.9, adult; Z98.51 Tubal ligation status; R77.8 Other specified abnormalities of plasma proteins; Z79.82 Long term (current) use of aspirin; Z79.899 Other long term (current) drug therapy; Z20.822 Contact with and (suspected) exposure to COVID-19
CPT/HCPCS: 36415; 70450; 70460; 71045; 71260; 74176; 74177; 76377; 80048; 80053; 80061; 80076; 81003; 83690; 83735; 83880; 84100; 84439; 84443; 84484; 85025; 85610; 87086; 87088; 93005; 94760; 96361; 96365; 96375; 99285; J0696; J1650; J7030; Q9967; U0003